=== PATIENT | female | born 1965 | race Caucasian/White ===

== ENCOUNTER 2021-09-28 10:23 | Emergency (ER) | payer MEDICAID ==
[2021-09-28 10:49] VITALS: BP 144/78; PULSE 78
== END 2021-09-28 11:52 | disposition home or self-care (01) ==
LOC: JP.ED 10:23
DX: G89.29 Other chronic pain (principal); M54.6 Pain in thoracic spine; E11.9 Type 2 diabetes mellitus without complications; Z90.710 Acquired absence of both cervix and uterus; Z79.899 Other long term (current) drug therapy; Z88.5 Allergy status to narcotic agent; Z88.8 Allergy status to other drugs, medicaments and biological substances; Z91.030 Bee allergy status; Z88.1 Allergy status to other antibiotic agents
CPT/HCPCS: 99282; 99283